=== PATIENT | male | born 1960 | race Caucasian/White ===

== ENCOUNTER 2019-04-06 05:13 | Inpatient (IN) ==
[2019-03-30 12:05] LABS: Basophils # (Auto) 0 K/mcL (0.0-0.3); Basophils % (Auto) 0.5 % (0.0-2.0); Eosinophils # (Auto) 0.1 K/mcL (0.0-0.7); Eosinophils % (Auto) 1.9 % (0.0-7.0); Granulocytes % (Auto) 72.7 % (38.0-78.0); Hematocrit 42.2 % (41.0-55.0); Hemoglobin 13.9 g/dL (13.5-16.5); Lymphocytes # (Auto) 1.5 K/mcL (1.5-4.8); Lymphocytes % (Auto) 20.9 % (15.5-49.0); Mean Cell Volume 88.9 fL (80.0-100.0); Mean Platelet Volume 9.9 fL (7.4-10.4); Monocytes # (Auto) 0.3 K/mcL (0.1-0.9); Platelet Count 267 K/mcL (140-440); RBC 4.75 M/mcL (4.50-5.90); Red Cell Distribution Width 13.5 % (11.5-14.5); WBC 7.3 K/mcL (4.5-11.0)
[2019-03-30 12:43] LABS: Blood Urea Nitrogen 17 mg/dl (6-20); Carbon Dioxide 28 mmol/L (22-30); Chloride 101 mmol/L (96-108); Glomerular Filtration Rate 93; Glucose 112 mg/dL (70-105)
[2019-03-30 12:53] LABS: Appearance,Urine CLEAR; Bilirubin,Urine NEG (NEG); Color,Urine YELLOW; Culture Indicated,Urine NO; Glucose,Urine (UA) NEGATIVE (NEG); Ketones,Urine NEG (NEG); Leukocyte Esterase,Urine NEG /uL (NEG); Nitrate,Urine NEG (NEG); Protein,Urine NEG (NEG); Specific Gravity,Urine 1.013 (1.000-1.035); Urine Blood NEG mg/dL (<0.03); Urobilinogen,Urine NEG (NEG)
[2019-03-30 13:09] LABS: INR 0.9 (0.9-1.1); Prothrombin Time 12.6 sec (11.9-14.5)
[2019-04-06] MEDS ORDERED: PREGABALIN 75 MG CAPSULE PO SCH (06:00)
[2019-04-06] MEDS ORDERED: CELECOXIB 200 MG CAPSULE PO SCH (06:00)
[2019-04-06] MEDS ORDERED: ceFAZolin 2 GM in DEXTROSE 5% IN WATER 50 ML IV SCH (06:00)
[2019-04-06] MEDS ORDERED: oxyCODONE 10 MG TAB.ER.12H PO SCH (06:00)
[2019-04-06] MEDS ORDERED: 0.9 % SODIUM CHLORIDE 9 ML, KETOROLAC 30 MG, ROPIVACAINE HCL/PF 49.5 ML, EPINEPHrine 0.... IJ SCH (06:00)
[2019-04-06] MEDS ORDERED: IPRATROPIUM/ALBUTEROL 3 ML AMPUL.NEB NEB PRN (07:00)
[2019-04-06] MEDS ORDERED: SCOPOLAMINE 1 PATCH PATCH TOPICAL PRN (07:00)
[2019-04-06] MEDS ORDERED: ROPIVACAINE HCL/PF 20 ML VIAL IJ ONE (07:25)
[2019-04-06] MEDS ORDERED: ONDANSETRON 4 MG/2 ML VIAL IV ONE (07:25)
[2019-04-06] MEDS ORDERED: MIDAZOLAM 2 MG/2 ML VIAL IV ONE (07:25)
[2019-04-06] MEDS ORDERED: ePHEDrine 50 MG/ML AMPUL IV ONE (07:25)
[2019-04-06] MEDS ORDERED: PROPOFOL 200 MG/20 ML VIAL IV ONE (07:25)
[2019-04-06] MEDS ORDERED: KETAMINE 100 MG/ML ML IV ONE (07:25)
[2019-04-06] MEDS ORDERED: DEXAMETHASONE 10 MG/ML VIAL IV ONE (07:25)
[2019-04-06] MEDS ORDERED: LIDOCAINE HCL/PF 100 MG/5 ML SYRINGE IV ONE (07:25)
[2019-04-06] MEDS ORDERED: TRANEXAMIC ACID 1,000 MG/10 ML VIAL IV ONE ×2 (07:25→09:10)
[2019-04-06] MEDS ORDERED: GENTAMICIN SULFATE 800 MG/20 ML VIAL IR ONE (08:04)
[2019-04-06] MEDS ORDERED: ONDANSETRON 4 MG/2 ML VIAL IV PRN (09:10)
[2019-04-06] MEDS ORDERED: POLYETHYLENE GLYCOL 3350 17 GM PACKET PO PRN (09:10)
[2019-04-06] MEDS ORDERED: BENZOCAINE/MENTHOL 1 LOZENGE PO PRN (09:10)
[2019-04-06] MEDS ORDERED: MAGNESIUM HYDROXIDE 30 ML ORAL.SUSP PO PRN (09:10)
[2019-04-06] MEDS ORDERED: METHOCARBAMOL 750 MG TABLET PO PRN (09:10)
[2019-04-06] MEDS ORDERED: FLEETS ADULT ENEMA PR PRN (09:10)
[2019-04-06] MEDS ORDERED: ONDANSETRON 4 MG ODT TABLET SL PRN (09:10)
[2019-04-06] MEDS ORDERED: BISACODYL 10 MG SUPP.RECT PR PRN (09:10)
--- NOTE | 2019-04-06 09:10 | Brief Operative Note ---
Date of procedure: 04/06/19 Pre-op diagnosis: left knee osteoarthritis Post-op diagnosis: same Procedure: left total knee arthroplasty Grafts/Implants: Yes Anesthesia: spinal Complications: none Surgeon: Tenzin Kirkpatrick Extension Associate: Oneyda Boothe Estimated blood loss (cc): 100 Tourniquet Time (Minutes): 58 Specimens Removed/Pathology: none sent Condition: stable Disposition: PACU
--- NOTE | 2019-04-06 09:31 | Operative Note ---
DATE OF OPERATION: 04/06/2019 PREOPERATIVE DIAGNOSIS: Degenerative joint disease, left knee. POSTOPERATIVE DIAGNOSIS: Degenerative joint disease, left knee. PROCEDURE: Left total knee arthroplasty. SURGEON: Yash Kirkpatrick M.D. RETIREMENT ADMINISTRATOR SURGEON: Oneyda Boothe PA-C. The PA's assistance was required for the safe and efficient completion of the entire case. This provider's expertise and technical skill were required throughout the case. The PA assisted with preoperative coordination, intraoperative retraction, wound closure, dressing and splint application, as well as postoperative documentation and care coordination. ANESTHESIA: Spinal with LMA assist. ESTIMATED BLOOD LOSS: 100 mL COMPLICATIONS: None noted. SPECIMENS REMOVED: None. DRAINS: None. TOURNIQUET TIME: 58 minutes at 300 mmHg. IMPLANTS: DePuy CMW2 bone cement 20 grams x5, DePuy Attune femoral posterior stabilized size 8 left cemented, DePuy Attune tibial insert fixed bearing posterior stabilized size 8, 5 mm AOX, DePuy Attune tibial fixed bearing size 7 cemented, DePuy Attune patella medialized dome 38 mm cemented AOX. INDICATIONS: The patient has had a long-standing history of worsening pain in the knee that has failed conservative treatment. Radiographs have confirmed advanced degenerative joint disease. After a long discussion about treatment options, the patient elected to proceed with a knee arthroplasty. The risks and benefits were discussed with the patient in detail including, but not limited to, the risks of anesthesia, problems with the heart or lungs related to anesthesia, infection, compromise or injury to the nerves and blood vessels, deep venous thrombosis, pulmonary embolism, pneumonia, continued pain after surgery, worsening pain or symptoms after surgery, swelling, loss of motion, instability, leg length discrepancy, and need for repeat surgery. DESCRIPTION OF PROCEDURE: The patient was seen in the pre-anesthesia waiting room where all questions were answered and the correct side and site were identified and marked. The patient was transferred to the operating room and administered the anesthetic and given pre-operative antibiotics. A time-out was then called. The extremity was prepped and draped, exsanguinated, and the tourniquet was inflated to 300 mmHg. A midline skin incision was then made with a standard medial parapatellar arthrotomy. Debridement of the menisci, ACL, and PCL was performed followed by balancing releases in the medial lateral plane. We then established intramedullary access to both the femur and tibia in a standard fashion. The femoral guide santiago was initially placed with the distal femoral guide, pinned into place, and the distal femoral cut was performed and checked with a flat plate. We then turned our attention to the tibia. The intramedullary guide was placed with the proximal tibial cutting block. The block was appropriately positioned off the affected side, varus and valgus was checked with the extra-medullary guide, and the block was pinned into place. The proximal tibial cut was performed and the tibia was prepared for the tibial implant with appropriate rotation. The tibia, femur, and posterior compartment were debrided of osteophytes, loose bodies, and meniscal fragments We then used the gap balancing technique to balance extension with the first two cuts and good balancing was obtained with a 10 millimeter gap block. We turned our attention back to the femur and used the referencing block and implant to size appropriately. Using the gap balancing technique for the flexion space we set our rotation of the femur off the tibial cut. Anesthesia gave the patient 1 gram of Tranexamic Acid via an intravenous route. We placed the 4 in 1 cutting block and made anterior, posterior, and chamfer cuts. Box plasty cuts were then made in a standard fashion for the posterior stabilized prosthesis. We then completed osteophyte release and posterior capsule release from the posterior compartment. Trials were placed and we chose the polyethylene insert thickness that provided the best stability in all planes. With the trials in place, we did a measured resection for a resurfacing patella. We sized the patella and placed the patella trial and performed a lateral facetectomy with the saw and rongeur. Good tracking was obtained. We removed all trials, irrigated and dried all cut surfaces. We cemented the components into place including tibia, femur and patella. We placed a trial liner and held the knee in full extension with the patella compressed while the cement cured. We then removed all excess cement and placed the final polyethylene tibiofemoral component. Irrigation with 3 liters of antibiotic saline was then performed using jet-lavage. We let the tourniquet down and coagulated bleeding vessels. We injected a 100 cubic centimeter volume including Ropivacaine 49.25 cubic centimeters at 5 milligrams per cubic centimeter, Ketorolac 30 milligrams, and Epinephrine 0.5 milligrams into 100 cubic centimeters volume of normal saline. We closed the retinaculum with #2 Stratafix and 0 Vicryl. We closed the subcutaneous tissue and skin in layers out to Dermabond on the skin. A sterile pressure dressing was applied. All needle and sponge counts were correct. The patient was transferred to the recovery room in stable condition. ELLIS:milla Job ID: [id number] Doc ID: [id number] Yash Kirkpatrick MD
[2019-04-06] MEDS: LACTATED RINGERS 1,000 ML IV SCH ×2 (09:37→21:04)
--- NOTE | 2019-04-06 10:00 | XRay Report ---
CLINICAL INFORMATION: Post-Op Total Knee COMPARISON: Preoperative film 06/27/2014 FINDINGS: Total knee prostheses is anatomically aligned. No osseous abnormality. Periarticular gas and soft tissue swelling seen - as expected. IMPRESSION: Negative Interpreted and Authenticated by: Tenzin Tim 04/06/19
[2019-04-06] MEDS: morphine 30 MG TAB.SR.12H PO SCH ×2 (10:12→19:03)
[2019-04-06] MEDS: KETOROLAC 15 MG/ML VIAL IV SCH ×3 (12:09→23:30)
[2019-04-06] MEDS: 0.9 % SODIUM CHLORIDE 10 ML SYRINGE IV SCH ×2 (14:39→23:30)
[2019-04-06] MEDS: ceFAZolin 1 GM VIAL IV SCH ×2 (14:57→23:30)
[2019-04-06] MEDS: oxyCODONE/APAP 5/325MG TABLET PO PRN ×2 (15:48→21:02)
[2019-04-06] MEDS ORDERED: SENNOSIDES 1 TABLET PO SCH (21:00)
[2019-04-06] MEDS: DOCUSATE SODIUM 100 MG CAPSULE PO SCH (21:03)
[2019-04-06] MEDS: ASPIRIN 81 MG TAB.CHEW PO SCH (21:03)
[2019-04-06] MEDS: ATORVASTATIN 20 MG TABLET PO SCH ×2 (21:03→21:05)
[2019-04-07] MEDS: oxyCODONE/APAP 5/325MG TABLET PO PRN ×3 (01:33→10:59)
[2019-04-07] MEDS: 0.9 % SODIUM CHLORIDE 10 ML SYRINGE IV SCH (05:25)
[2019-04-07] MEDS: KETOROLAC 15 MG/ML VIAL IV SCH ×2 (05:25→12:21)
[2019-04-07 05:54] LABS: Hematocrit 34.5 % (41.0-55.0); Hemoglobin 11.5 g/dL (13.5-16.5)
--- NOTE | 2019-04-07 07:13 | Discharge Summary ---
Providers - Providers Patient information: Note initiated : 04/07/19 at 7:10 am Service Date, if different from initiated Date: [] Patient: Ozzie العراقي 58 y/o M admitted on 04/06/19 for Left Total Knee Arthroplasty *!head up operator helper!*. Chief Complaint: [POD #1 s/p left TKA Doing well, ambulating well. Denies CP, SOB, numbness, tingling, calf pain] Date of admission: 04/06/19 Discharge date: 04/07/19 Hospitalization Hospital course: Brought into OR on 04/06/19 for above mentioned procedure which went on without complication. He will discharge to home today and follow up in clinic in 10-14 days for post op. Discharge diagnosis: knee osteoarthritis Exam - Exam Incision healing: Yes Incision draining: No Incision red: No Incision swollen: No Incision inflamed: No Clean and dry: Yes Weight bearing status: as tolerated Range of motion: full foot and ankle Ortho Discharge - TKA - Patient Instructions Diet: Regular Diet Activity: weight bearing as tolerated Total Knee Protocol: For Total Knee: Start ROM AYANNA with stationary bike or rocking chair. Work on gaining full extension of knee. Posterior dislocation precautions provided. Hip abductor strengthening and gait training instructions provided. Apply Cryocuff as instructed. Dressing Care: Other (dermabond) - Follow Up Plan Follow Up Appointments: Oneyda Boothe PA-C [Physician [facility]] - 04/21/19 8:40 am Disposition: Home, Self-Care Prognosis: Good Rehab Potential: Good I certify that the patient requires SNF services: No Overall status at discharge: patient is progressing back to baseline - Orders For Discharge Prescriptions: Aspirin 81 mg PO BID #28 tab.chew oxyCODONE/APAP [Percocet 5-325 mg] 1 - 2 tab PO Q4HP PRN #60 tablet PRN Reason: Pain Level 3-6 Additional Discharge Orders: Physical Therapy at Discharge - TKA Location: None Selected Walker Location: None Selected Pending Studies Resuscitation Status Full Code Diet Regular Diet Start FriApr 06 0911 Aspirin (Aspirin) 81 mg PO BID [facility] Last Admin: 04/06/19 21:03 Dose: 81 mg Documented by: NSTOVER Atorvastatin Calcium (Lipitor) 40 mg PO HS [facility] Last Admin: 04/06/19 21:05 Dose: Not Given Documented by: NSTOVER Docusate Sodium (Colace) 100 mg PO BID [facility] Last Admin: 04/06/19 21:03 Dose: 100 mg Documented by: FRANCISCO Ketorolac Tromethamine (Toradol) 15 mg IV Q6 [facility] Stop: 04/08/19 06:01 Last Admin: 04/07/19 05:25 Dose: 15 mg Documented by: Admin: 04/06/19 23:30 Dose: 15 mg Documented by: Admin: 04/06/19 17:59 Dose: 15 mg Documented by: Admin: 04/06/19 12:09 Dose: 15 mg Documented by: JULIANNA Methocarbamol (Robaxin) 750 mg PO Q6HP PRN PRN Reason: Muscle Spasm Last Admin: 04/06/19 15:48 Dose: 750 mg Documented by: JULIANNA Morphine Sulfate (Ms Contin) 30 mg PO Q12H [facility] Last Admin: 04/06/19 19:03 Dose: 30 mg Documented by: Admin: 04/06/19 10:12 Dose: 30 mg Documented by: JULIANNA Morphine Sulfate (Morphine) 0 mg IV Q1HP PRN PRN Reason: PAIN LEVEL > 6 Last Admin: 04/06/19 16:53 Dose: 4 mg Documented by: Admin: 04/06/19 13:36 Dose: 2 mg Documented by: [email or web address] Oxycodone/Acetaminophen (Percocet 5-325 Mg) 0 tab PO Q4HP PRN PRN Reason: PAIN LEVEL 3-6 Last Admin: 04/07/19 05:25 Dose: 2 tab Documented by: Admin: 04/07/19 01:33 Dose: 2 tab Documented by: Admin: 04/06/19 21:02 Dose: 2 tab Documented by: Admin: 04/06/19 15:48 Dose: 2 tab Documented by: JULIANNA Senna (Senokot) 2 tab PO HS [facility] Last Admin: 04/06/19 21:03 Dose: 2 tab Documented by: FRANCISCO Sodium Chloride (Saline Flush) 10 ml IV Q8 [facility] Last Admin: 04/07/19 05:25 Dose: 10 ml Documented by: Admin: 04/06/19 23:30 Dose: 10 ml Documented by: Admin: 04/06/19 14:39 Dose: Not Given Documented by: F Shift Summary 04/07/19 04:18 Shift Summary by Nathaly Lizama A&O x4. Pt received MS contin around 1900 and usually takes it at 0700 so he may ask to take it early. Pt received scheduled toradol and Perocet 2 tabs Q4H for pain. Pt ambulated with PT yesterday and did not want to ambulate halls again. Pt placed in CPM with flexion to 40 degrees but did not want it again. He did not like it. VSS on RA. IV to L forearm is SL. Pt voiding per urinal. Pt wants to take lipitor this AM instead of at HS so held last night. Up with SBA, FWW - pt is fairly stable on feet. Pt hoping to DC today. Initialized on 04/07/19 04:18 - END OF NOTE
[2019-04-07] MEDS: DOCUSATE SODIUM 100 MG CAPSULE PO SCH (08:29)
[2019-04-07] MEDS: morphine 30 MG TAB.SR.12H PO SCH (08:29)
[2019-04-07] MEDS: ASPIRIN 81 MG TAB.CHEW PO SCH (08:29)
== END 2019-04-07 14:10 | disposition home or self-care (01) | DRG 470 ==
LOC: MEDSUR 05:13
PROVIDERS: ADMIT Orthopaedic Surgery Sports Medicine; ATTEND Orthopaedic Surgery Sports Medicine